=== PATIENT | female | born 1930 | race Caucasian/White ===

== ENCOUNTER 2016-11-18 12:27 | Emergency (ER) | payer OTHER ==
--- NOTE | 2016-11-18 12:33 | PDOC ---
History of Present Illness - General Chief Complaint: Injury Stated Complaint: fell, rt chest, rt lll,rt foot injury Time Seen by Provider: 11/18/16 12:28 History Source: Patient, Old Records Exam Limitations: No Limitations, Language Barrier - History of Present Illness Initial Comments: 11/18/16 12:52 86 y/o female with h/o HTN, DM, CHF, HL presents to the ED with c/o right-sided chest pain and foot pain folowing a fall earlier today. The patient was working in her garden when she states that she fell over her cat. She struck the right side of her chest and stepped on a piece of metal that was on the ground. There was no head trauma or LOC. The patient describes the pain as right sided confined to the right breast region, sharp and worsened with palpation and deep inspiration. She denies SOB, neck pain. Last tetanus is unknown. Past History - Past Medical History Allergies/Adverse Reactions: Allergies Allergy/AdvReac Type Severity Reaction Status Date / Time No Known Allergies Allergy Verified 11/18/16 12:28 Home Medications: Ambulatory Orders Carvedilol [Coreg -] 12.5 mg PO BID 08/06/15 Furosemide [Lasix -] 40 mg PO DAILY 08/06/15 Metformin HCl 500 mg PO BID 08/06/15 Quinapril HCl [Accupril] 40 mg PO BID 08/06/15 Simvastatin [Zocor -] 20 mg PO HS 08/06/15 Diabetes: Yes HTN: Yes Hypercholesterolemia: Yes - Surgical History Cholecystectomy: Yes - Psycho/Social/Smoking Cessation Hx Anxiety: No Suicidal Ideation: No Smoking History: Never smoked Review of Systems - Review of Systems Able to Perform ROS?: Yes Is the patient limited Georgian proficient: No Constitutional: No: Symptoms Reported HEENTM: No: Symptoms Reported Respiratory: No: Symptoms reported Cardiac (ROS): No: Symptoms Reported ABD/GI: No: Symptoms Reported : No: Symptoms Reported Musculoskeletal: Yes: See HPI Integumentary: Yes: See HPI *Physical Exam - Physical Exam Comments: 11/18/16 12:55 GENERAL: Well developed, well nourished. Awake and alert. No acute distress. HEENT: Normocephalic, atraumatic. PERRLA, EOMI. No conjunctival pallor. Sclera are non- icteric. Moist mucous membranes. Oropharynx is clear. NECK: Supple. Full ROM. No JVD. No lymphadenopathy. CARDIOVASCULAR: Regular rate and rhythm. No murmurs, rubs, or gallops. Distal pulses are 2+ and symmetric. PULMONARY: No evidence of respiratory distress. Lungs clear to auscultation bilaterally. No wheezing, rales or rhonchi. ABDOMINAL: Soft. Non-tender. Non-distended. No rebound or guarding. No organomegaly. Normoactive bowel sounds. MUSCULOSKELETAL Normal range of motion at all joints. No bony deformities or tenderness. No CVA tenderness. Thewre is no ecchymosis of the chest wall but there is mild tenderness to palpation of the right breast region. EXTREMITIES: No cyanosis. No clubbing. No edema. No calf tenderness. There is a small abrasion to the plantar surface of the right foot near the distal third metatarsal region and underneath the third toe. There is no active bleeding. There is no bony tenderness to palpation. The is a superficial linear abrasion to the right anterior tib/fib region. SKIN: Warm and dry. Normal capillary refill. No rashes. No jaundice. NEUROLOGICAL: Alert, awake, appropriate. Cranial nerves 2-12 intact. Grossly non-focal exam. Ambulatory with a steady gait. PSYCHIATRIC: Cooperative. Good eye contact. Appropriate mood and affect. Medical Decision Making - Medical Decision Making 11/18/16 12:58 86-year-old female with history of hypertension, diabetes, CHF, hyperlipidemia with complaints of right-sided chest pain immediately following a mechanical fall earlier today. Differential diagnosis includes but is not limited to: Chest wall contusion, rest contusion, rib fracture, superficial wound to the right foot. Plan: 1. Chest x-ray 2. Pain management with Tylenol 3. Tetanus toxoid 4. Chest x-ray is negative will discharge home follow-up with primary care physician and return to the ED if symptoms persist, worsen, or new symptoms arise. 11/18/16 13:40 Addendum: Chest Xray is negative. Will discharge home with abovementioned instructions. *DC/Admit/Observation/Transfer Diagnosis at time of Disposition: Chest wall contusion, Abrasion of foot, right, Fall - Discharge Dispostion Disposition: HOME Condition at time of disposition: Stable Admit: No - Patient Instructions Additional Instructions: You may take tylenol or ibuprofen as needed for pain. Please follow-up with your primary care physician within the coming week and return to the ED if your symptoms persist, worsen or new symptoms arise.
[2016-11-18 12:43] VITALS: BMI 32.4
[2016-11-18] MEDS ORDERED: ACETAMINOPHEN 325 MG TABLET (FP) PO ONE (12:43)
[2016-11-18] MEDS ORDERED: DIPHTH,PERTUSS(ACELL),TET 0.5 ML DISP.SYRIN IM ONE (12:44)
[2016-11-18] MEDS ORDERED: ACETAMINOPHEN 325 MG TABLET (FP) ONE (12:55)
[2016-11-18 13:11] VITALS: BP 153/63; PULSE 63; TEMP 97.9
== END 2016-11-18 13:45 | disposition home or self-care (01) ==
LOC: FER 12:27
PROC: 3E0234Z Introduction of Serum, Toxoid and Vaccine into Muscle, Percutaneous Approach (ICD-10-PCS; principal; 2016-11-18)
DX: S20.219A Contusion of unspecified front wall of thorax, initial encounter (principal); W01.0XXA Fall on same level from slipping, tripping and stumbling without subsequent striking against object, initial encounter; Y93.H2 Activity, gardening and landscaping; Y92.007 Garden or yard of unspecified non-institutional (private) residence as the place of occurrence of the external cause; S90.811A Abrasion, right foot, initial encounter; E11.9 Type 2 diabetes mellitus without complications
CPT/HCPCS: 71020-TC; 90715; 99282-25

== ENCOUNTER 2017-12-10 09:24 | Emergency (ER) | payer OTHER ==
--- NOTE | 2017-12-10 09:33 | PDOC ---
Attending Attestation - Resident Resident Name: Kenrick Funes - ED Attending Attestation I have performed the following: I have examined & evaluated the patient, The case was reviewed & discussed with the resident, I agree w/resident's findings & plan, Exceptions are as noted - HPI HPI: 12/10/17 09:32 Pt rolled over in bed and struck her forehead on the edge of the night stand no LOC No amnesia - Physicial Exam PE: 12/10/17 11:19 GENERAL: Awake, alert, and fully oriented, in no acute distress HEAD: Small abrasion approximately 2 cm over right eyebrow EYES: PERRL, EOMI, sclera anicteric, conjunctiva clear ENT: Auricles normal inspection, hearing grossly normal, Moist mucosa NECK: Normal ROM, supple, no midline tenderness to palpation LUNGS: No distress, speaks full sentences, clear to auscultation bilaterally HEART: Regular rate and rhythm, normal S1 and S2, no murmurs appreciated, peripheral pulses normal and equal bilaterally ABDOMEN: Soft, nontender, normoactive bowel sounds. No guarding, no rebound. No masses EXTREMITIES : Normal inspection, Normal range of motion , ambulatory with a steady gait NEUROLOGICAL: Cranial nerves II through XII grossly intact. Normal speech, normal gait, no focal sensorimotor deficits SKIN: Warm, Dry, normal turgor, no rashes or lesions noted - Medical Decision Making 12/10/17 11:36 87 yo F s/p minor head trauma, with no other signs or symptoms Pt not taking anticoagulants Will do: CT head and CT c spine CT demonstrates no ICH CT cervical spine - degenerative changes, no fracture or dislocation Pt has no weakness or numbness Will plan to discharge to home Follow up with PMD clinical impression: minor head trauma, initial presentatio
--- NOTE | 2017-12-10 09:41 | PDOC ---
History of Present Illness - General Chief Complaint: Pain Stated Complaint: TURNED GETTING OUT OF BED HIT HEAD ON NIGHT GLEN Time Seen by Provider: 12/10/17 09:32 - History of Present Illness Initial Comments: The patient is a 87F with a history of HTN and T2DM who presents with headache and neck pain 2/2 hitting her head on her night stand while rolling out of bed. The patient denies LOC, denies falling from bed, denies falls. The patient denies chest pain, SOB, abdominal pain, N/V/C/D, dysuria, or changes in sensation 12/10/17 09:39 Past History - Past Medical History Allergies/Adverse Reactions: Allergies Allergy/AdvReac Type Severity Reaction Status Date / Time No Known Allergies Allergy Verified 12/10/17 09:26 Home Medications: Ambulatory Orders Carvedilol [Coreg -] 12.5 mg PO BID 08/06/15 Furosemide [Lasix -] 40 mg PO DAILY 08/06/15 Quinapril HCl [Accupril] 40 mg PO BID 08/06/15 Simvastatin [Zocor -] 20 mg PO HS 08/06/15 metFORMIN HCL [Metformin HCl] 500 mg PO BID 08/06/15 Diabetes: Yes HTN: Yes Hypercholesterolemia: Yes - Surgical History Cholecystectomy: Yes - Suicide/Smoking/Psychosocial Hx Smoking History: Never smoked Have you smoked in the past 12 months: No Hx Alcohol Use: No Drug/Substance Use Hx: No Substance Use Type: None Review of Systems - Review of Systems Able to Perform ROS?: Yes Comments:: GENERAL/CONSTITUTIONAL: No fever or chills. No weakness HEAD, EYES, EARS, NOSE AND THROAT: No change in vision. No ear pain or discharge. No sore throat CARDIOVASCULAR: No chest pain or shortness of breath RESPIRATORY: No cough, wheezing, or hemoptysis GASTROINTESTINAL: No nausea, vomiting, diarrhea or constipation GENITOURINARY: No dysuria, frequency, or change in urination MUSCULOSKELETAL: No joint or muscle swelling or pain. SKIN: No rash NEUROLOGIC: No headache, vertigo, loss of consciousness, or change in strength/ sensation ENDOCRINE: No increased thirst. No abnormal weight change HEMATOLOGIC/LYMPHATIC: No anemia, easy bleeding, or history of blood clots ALLERGIC/IMMUNOLOGIC: No hives or skin allergy 12/10/17 09:52 *Physical Exam - Physical Exam Comments: GENERAL: Awake, alert, and fully oriented, in no acute distress HEAD: Small abrasion approximately 2 cm over right eyebrow EYES: PERRL, EOMI, sclera anicteric, conjunctiva clear ENT: Auricles normal inspection, hearing grossly normal, nares patent, oropharynx clear without exudates. Moist mucosa NECK: Normal ROM, supple, no lymphadenopathy LUNGS: No distress, speaks full sentences, clear to auscultation bilaterally HEART: Regular rate and rhythm, normal S1 and S2, no murmurs appreciated, peripheral pulses normal and equal bilaterally ABDOMEN: Soft, nontender, normoactive bowel sounds. No guarding, no rebound. No masses EXTREMITIES : Normal inspection, Normal range of motion, no edema. No clubbing or cyanosis NEUROLOGICAL: Cranial nerves II through XII grossly intact. Normal speech, normal gait, no focal sensorimotor deficits SKIN: Warm, Dry, normal turgor, no rashes or lesions noted 12/10/17 09:55 ED Treatment Course - RADIOLOGY Radiology Studies Ordered: Category Date Time Status CERVICAL SPINE CT W/O CONTR [CT] Stat CT Scan 12/10/17 09:[address] WITHOUT CONTRAST [CT] Stat CT Scan 12/10/17 09:37 Ordered Medical Decision Making - Medical Decision Making The patient is a 87F with a history of HTN and T2DM who presents for evaluation of head and neck pain 2/2 rolling out of bed and hitting her head on her nightstand. No LOC ED Course CT head and c-spine w/o contrast 12/10/17 09:56 CT head negative for hemorrhage CT C-spine negative fracture Plan for discharge with PCP f/u Patient in agreement with plan and verbalized understanding Return instructions given Dispo: Home 12/10/17 10:58 *DC/Admit/Observation/Transfer Diagnosis at time of Disposition: Abrasion of head Qualifiers: Encounter type: initial encounter Qualified Code(s): S00.91XA - Abrasion of unspecified part of head, initial encounter - Discharge Dispostion Disposition: HOME Condition at time of disposition: Stable Decision to Admit order: No - Referrals Referrals: Moise Mann [Other] - Patient Instructions Printed Discharge Instructions: How to Prevent Falls Additional Instructions: You were seen in the Emergency Department for fall out of bed. Please review the handout provided at discharge. Please follow up with your Primary Care Provider. Return to the Emergency Department if you develop fevers, nauseas, vomiting, worsening pain, worsening symptoms, or any new concerning symptoms. - Post Discharge Activity
[2017-12-10 09:48] VITALS: BMI 30.9
[2017-12-10 11:18] VITALS: BP 141/64; PULSE 58; TEMP 97.8
== END 2017-12-10 11:19 | disposition home or self-care (01) ==
LOC: FER 09:24
DX: S00.91XA Abrasion of unspecified part of head, initial encounter (principal); W06.XXXA Fall from bed, initial encounter; Y93.89 Activity, other specified; Y92.89 Other specified places as the place of occurrence of the external cause; I10 Essential (primary) hypertension; E11.9 Type 2 diabetes mellitus without complications; E78.00 Pure hypercholesterolemia, unspecified
CPT/HCPCS: 70450-TC; 72125-TC; 99282-25

== ENCOUNTER 2019-01-14 22:55 | Emergency (ER) | payer OTHER ==
[2019-01-14 23:24] VITALS: TEMP 97.4; BMI 23.6
--- NOTE | 2019-01-14 23:26 | PDOC ---
History of Present Illness - General Chief Complaint: Lightheaded Stated Complaint: COUGH/DIZZY Time Seen by Provider: 01/14/19 23:04 History Source: Patient, Family Exam Limitations: No Limitations - History of Present Illness Initial Comments: 01/14/19 23:32 This is a 88-year-old female brought in by her family for evaluation of weakness and cough. As per the patient she has had a cough for 2 to 3 weeks but the family said that they were only aware of how bad it was over the last few days. Patient denies any nausea, vomiting, diarrhea. Patient said that she has pleuritic type chest pain especially when she coughs. Patient said she is not coughing up any yellow or green phlegm. Patient does not feel short of breath. Patient was able to work outside in her yard all day today without difficulty. Allergies: as per nursing notes Past Medical History: none Social history: Lives with family. No smoking. No alcohol. No illicit drugs. Surgical history: None General: No fevers or chills, no weakness, no weight loss HEENT: No change in vision. No sore throat,. No ear pain CardioVascular: no chest discomfort. No shortness of breath Respiratory: + cough, or wheezing. Gastrointestinal: no nausea, vomiting, diarrhea or constipation, No rectal bleeding Genitourinary: No dysuria, hematuria, or frequency Musculoskeletal: No joint or muscle pain or swelling Neurologic: No headache, vertigo, dizziness or loss of consciousness Psychiatric: nor depression Skin: No rashes or easy bruising Endocrine: no increased thirst or abnormal weight change Allergic: no skin or latex allergy All other systems reviewed and normal Exam: General: Well-nourished well-developed individual, no acute distress HEENT: Throat: Normal, tonsils normal, no erythema or exudate Neck: Supple, no meningeal signs, no lymphadenopathy Eyes::Pupils equal reactive and round, extraocular motion intact Chest: Nontender to palpation Cardiac: S1-S2 normal, regular rate and rhythm, no murmurs rubs or gallops Respiratory: Lungs clear to auscultation bilateral Abdomen: Soft, nondistended, normal bowel sounds, there is no tenderness on palpation diffusely Extremities: Warm, dry, no cyanosis, clubbing, or edema Skin: No rashes Neuro: Alert and oriented x3, CN II - XII intact, nonfocal exam with normal strength, normal sensation, normal reflexes, normal gait, Psych: Normal mood and affect 01/15/19 02:37 Patient's urinalysis is positive for nitrates and leukocytes. We will try repeat patient with ceftriaxone IV and sent home on Macrobid. Chest x-ray shows no acute pathology EKG shows no acute ST-T wave changes Patient was discharged we will follow-up with PMD Past History - Past Medical History Allergies/Adverse Reactions: Allergies Allergy/AdvReac Type Severity Reaction Status Date / Time No Known Allergies Allergy Verified 12/10/17 09:26 Home Medications: Ambulatory Orders Carvedilol [Coreg -] 12.5 mg PO BID 08/06/15 Furosemide [Lasix -] 40 mg PO DAILY 08/06/15 Quinapril HCl [Accupril] 40 mg PO BID 08/06/15 Simvastatin [Zocor -] 20 mg PO HS 08/06/15 metFORMIN HCL [Metformin HCl] 500 mg PO BID 08/06/15 Nitrofurantoin Monohyd/M-Cryst [Macrobid -] 100 mg PO BID #14 capsule 01/15/19 COPD: No Diabetes: Yes HTN: Yes Hypercholesterolemia: Yes - Surgical History Cholecystectomy: Yes - Psycho Social/Smoking Cessation Hx Smoking History: Unknown if ever smoked Have you smoked in the past 12 months: No Number of Cigarettes Smoked Daily: 0 Information on smoking cessation initiated: No Hx Alcohol Use: No Drug/Substance Use Hx: No Substance Use Type: None *Physical Exam - Vital Signs Last Vital Signs Temp Pulse Resp BP Pulse Ox 97.4 F L 76 14 204/82 H 99 01/14/19 22:58 01/14/19 22:58 01/14/19 22:58 01/14/19 22:58 01/14/19 22:58 ED Treatment Course - LABORATORY CBC & Chemistry Diagram: 01/15/19 00:00 01/15/19 00:00 Discharge - Discharge Information Problems reviewed: Yes Clinical Impression/Diagnosis: Cystitis Condition: Good Disposition: HOME - Admission No - Additional Discharge Information Prescriptions: Nitrofurantoin Monohyd/M-Cryst [Macrobid -] 100 mg PO BID #14 capsule - Follow up/Referral - Patient Discharge Instructions Additional Instructions: Your work-up shows that you have an infection in your urine for which we have given you IV antibiotics and he will also need to take oral antibiotics twice a day for 7 days. I have sent a prescription to your pharmacy for the antibiotics.. Return to the emergency department immediately with ANY new, persistent or worsening symptoms. Continue any medications as previously prescribed by your physician. You should follow up with your primary doctor as soon as possible regarding today's emergency department visit. . Please make sure your doctor reviews the results of your emergency evaluation. Thank you for coming to the Emergency Department today for your care. It was a pleasure to see you today. Please note that your evaluation is INCOMPLETE until you follow-up with your doctor. - Post Discharge Activity
[2019-01-15 01:52] LABS: BASO % 0.3 % (0-2.0); EOS % 1.3 % (0-4.5); HEMATOCRIT 34.5 % (32.4-45.2); HEMOGLOBIN 11.7 GM/dL (10.7-15.3); LYMPH % 38.1 % (8-40); MCH 31.4 pg (25.7-33.7); MCHC 33.9 g/dl (32.0-36.0); MEAN CELL VOLUME 92.7 fl (80-96); MEAN PLT VOLUME 9.3 fl (7.5-11.1); MONO % 7.8 % (3.8-10.2); NEUT % 52.5 % (42.8-82.8); PLATELET COUNT 182 K/MM3 (134-434); RBC 3.72 M/mm3 (3.60-5.2); RDW 12.4 % (11.6-15.6); WHITE BLOOD COUNT 5.5 K/mm3 (4.0-10.0)
[2019-01-15 02:15] LABS: ALBUMIN 3.5 g/dl (3.4-5.0); ALK PHOS 96 U/L (45-117); ANION GAP 8 MMOL/L (8-16); BILIRUBIN,TOTAL 0.3 mg/dL (0.2-1); BLOOD UREA NITROGEN 32.4 mg/dL (7-18); CALCIUM 9.4 mg/dL (8.5-10.1); CHLORIDE 97 mmol/L (98-107); CO2 29 mmol/L (21-32); GLUCOSE,RANDOM 126 mg/dL (74-106); POTASSIUM 4.1 mmol/L (3.5-5.1); SGOT/AST 26 U/L (15-37); SGPT/ALT 20 U/L (13-61); SODIUM 134 mmol/L (136-145); TOT PROT 7.2 g/dl (6.4-8.2)
[2019-01-15 02:16] LABS: EPI CELLS 0.6 /HPF (0-5/HPF); HYALINE CASTS 2 /lpf (0-8); URINE APPEARANCE CLOUDY; URINE BACTERIA 2033.6 /hpf (NEGATIVE); URINE BILIRUBIN NEGATIVE (NEGATIVE); URINE COLOR YELLOW; URINE GLUCOSE (UA) NEGATIVE (NEGATIVE); URINE KETONE NEGATIVE (NEGATIVE); URINE LEUK ESTERASE 3+ (NEGATIVE); URINE NITRITE POSITIVE (NEGATIVE); URINE PROTEIN NEGATIVE (NEGATIVE); URINE RBC 3 /hpf (0-4); URINE UROBILINOGEN 0.2 mg/dL (0.2-1.0); URINE WBC 151 /hpf (0-5)
[2019-01-15] MEDS ORDERED: CEFTRIAXONE 1,000 MG in DEXTROSE 5%-WATER - 50 ML IVPB ONE (02:36)
[2019-01-15] MEDS ORDERED: cefTRIAXone SODIUM 1 GM VIAL ONE (02:37)
[2019-01-15 02:46] VITALS: BP 150/67; PULSE 61
--- NOTE | 2019-01-15 13:37 | EKG ---
Test Reason : Blood Pressure : / mmHG Vent. Rate : 066 BPM Atrial Rate : 066 BPM P-R Int : 222 ms QRS Dur : 084 ms QT Int : 388 ms P-R-T Axes : 044 -13 035 degrees QTc Int : 406 ms SINUS RHYTHM WITH 1ST DEGREE A-V BLOCK OTHERWISE NORMAL ECG NO PREVIOUS ECGS AVAILABLE Confirmed by CHANEL CASTORENA, NICCI ([id number]) on 01/15/2019 1:36:32 PM Referred By: MD LUI Confirmed By:NICCI BUCHANAN MD
== END 2019-01-15 02:53 | disposition home or self-care (01) ==
LOC: FER 22:55
DX: N30.90 Cystitis, unspecified without hematuria (principal); E11.9 Type 2 diabetes mellitus without complications; I10 Essential (primary) hypertension; E78.00 Pure hypercholesterolemia, unspecified
CPT/HCPCS: 36415; 71045-TC-FY; 80053; 81003; 82550; 84484; 85025; 87086; 87186; 93005; 99285-25

== ENCOUNTER 2020-05-23 23:40 | Emergency (ER) | payer OTHER ==
[2020-05-23 23:58] VITALS: TEMP 97.6; BMI 30.2
[2020-05-24 00:46] VITALS: BP 151/65; PULSE 63
== END 2020-05-24 00:50 | disposition home or self-care (01) ==
LOC: FER 23:40
DX: Z86.79 Personal history of other diseases of the circulatory system (principal)
CPT/HCPCS: 99284-25

== ENCOUNTER 2020-10-10 16:15 | Emergency (ER) | payer OTHER ==
[2020-10-10 16:35] VITALS: TEMP 97.7; BMI 31.0
[2020-10-10] MEDS ORDERED: MECLIZINE HCL 25 MG TABLET (FP) PO ONE ×2 (17:19→20:27)
[2020-10-10] MEDS ORDERED: MECLIZINE HCL 25 MG TABLET (FP) ONE (17:50)
[2020-10-10 18:44] LABS: BASO % 1.1 % (0-2.0); EOS % 1.2 % (0-4.5); HEMATOCRIT 35.2 % (32.4-45.2); HEMOGLOBIN 11.6 GM/dl (10.7-15.3); LYMPH % 24.8 % (8-40); MCH 30.7 pg (25.7-33.7); MEAN CELL VOLUME 93.1 fl (80-96); MEAN PLT VOLUME 8.2 fl (7.5-11.1); MONO % 8.3 % (3.8-10.2); NEUT % 64.6 % (42.8-82.8); PLATELET COUNT 197 10^3/uL (134-434); RBC 3.78 M/mm3 (3.60-5.2); RDW 11.9 % (11.6-15.6); WHITE BLOOD COUNT 7.4 K/mm3 (4.0-10.8)
[2020-10-10 19:00] LABS: ALBUMIN 3.8 g/dl (3.4-5.0); BILIRUBIN,TOTAL 0.5 mg/dl (0.2-1); TOT PROT 7.2 g/dl (6.4-8.2)
[2020-10-10 19:09] LABS: EPITHELIAL CELLS FEW /hpf
[2020-10-10] MEDS ORDERED: SODIUM CHLORIDE 0.9% 1000 ML INFUS.BAG IV ONE (19:10)
[2020-10-10] MEDS ORDERED: CEFTRIAXONE 1 GM in DEXTROSE 5%-WATER - 100 ML IVPB ONE (19:11)
[2020-10-10] MEDS ORDERED: cefTRIAXone SODIUM 1 GM VIAL ONE (19:26)
[2020-10-10 20:40] VITALS: BP 142/69; PULSE 67
== END 2020-10-10 20:40 | disposition home or self-care (01) ==
LOC: FER 16:15
DX: H81.10 Benign paroxysmal vertigo, unspecified ear (principal)
CPT/HCPCS: 36415; 70450-TC; 80053; 81003; 81015; 82550; 84484; 85025; 87086; 87186; 93005; 99285-25

== ENCOUNTER 2021-02-15 14:57 | Emergency (ER) | payer OTHER ==
[2021-02-15 15:11] VITALS: BP 128/56; PULSE 72; TEMP 98.2; BMI 29.5
[2021-02-15 16:19] LABS: EPITHELIAL CELLS FEW /hpf
[2021-02-15 16:22] LABS: HEMOGLOBIN 12.2 GM/dl (10.7-15.3); MEAN CELL VOLUME 91.9 fl (80-96); RDW 12.3 % (11.6-15.6)
[2021-02-15 16:29] LABS: HEMATOCRIT 36.5 % (32.4-45.2); MCH 30.8 pg (25.7-33.7); MCHC 33.5 g/dl (32.0-36.0); MEAN PLT VOLUME 8.4 fl (7.5-11.1); PLATELET COUNT 252 10^3/uL (134-434); RBC 3.98 M/mm3 (3.60-5.2); WHITE BLOOD COUNT 6.1 K/mm3 (4.0-10.8)
[2021-02-15 16:30] LABS: ALBUMIN 3.6 g/dl (3.4-5.0); BILIRUBIN,TOTAL 0.6 mg/dl (0.2-1); CALCIUM 9.5 mg/dl (8.5-10); CREATININE 0.9 mg/dl (0.55-1.3); TOT PROT 7.3 g/dl (6.4-8.2)
[2021-02-15] MEDS ORDERED: HYDROmorphone HCL CARPU-JECT 1 MG/1 ML DISP.SYRIN IVPUSH ONE (16:39)
[2021-02-15] MEDS ORDERED: NITROFURANTOIN MACROCRYSTAL 50 MG CAPSULE (FP) PO SCH (16:45)
[2021-02-15] MEDS ORDERED: NITROFURANTOIN MACROCRYSTAL 50 MG CAPSULE (FP) ONE (16:50)
[2021-02-15 18:24] LABS: PLATELET ESTIMATE ADEQUATE
== END 2021-02-15 16:57 | disposition home or self-care (01) ==
LOC: FER 14:57
DX: N39.0 Urinary tract infection, site not specified (principal)
CPT/HCPCS: 36415; 80053; 81003; 81015; 85025; 87086; 87186; 99283-25

== ENCOUNTER 2021-06-30 23:01 | Emergency (ER) | payer OTHER ==
[2021-06-30 23:15] VITALS: BP 183/67; PULSE 62; BMI 29.7
[2021-06-30 23:52] VITALS: TEMP 98.1
== END 2021-07-01 00:35 | disposition home or self-care (01) ==
LOC: FER 23:01
DX: S09.90XA Unspecified injury of head, initial encounter (principal); W19.XXXA Unspecified fall, initial encounter
CPT/HCPCS: 70450-TC; 99284-25